=== PATIENT | male | born 1980 | race Caucasian/White ===

== ENCOUNTER 2016-07-25 15:46 | Emergency (ER) | payer MEDICARE ==
[~2016-07-25 15:46] MED LIST: ALPR2TAB5 PO; ASPI-252 PO; METO100T2 PO
[2016-07-25 16:01] VITALS: BP 162/81
--- NOTE | 2016-07-25 16:10 | PHYS DOC ---
Past Medical History Past Medical History: A-Fib, Anxiety, Bronchitis, Other Additional Past Medical Histor: PTSD, TBI, OBESITY Past Surgical History: Other Additional Past Surgical Histo: cervical fusion c-5 to c-7 Alcohol Use: None Drug Use: None Adult General Chief Complaint Chief Complaint: LOWEREXTREMITY INJURY [facility] HPI Patient is a 36 year old male presents to the emergency department with a history of stepping on a nail 2 hours prior to arrival. Patient states that his last tetanus was approx 4 years ago. Patient states he pulled the nail out and believes that it was intact. He has taken ibuprofen 800 mg prior to arrival without relief. Patient states he has placed a bandaid over the area, has increase pain with ambulation. Review of Systems Review of Systems Constitutional: Denies fever or chills [] Eyes: Denies change in visual acuity, redness, or eye pain [] HENT: Denies nasal congestion or sore throat [] Respiratory: Denies cough or shortness of breath [] Cardiovascular: No additional information not addressed in HPI [] GI: Denies abdominal pain, nausea, vomiting, bloody stools or diarrhea [] : Denies dysuria or hematuria [] Musculoskeletal: Denies back pain or joint pain [] Integument: Denies rash or skin lesions. Stepped on nail to the left foot Neurologic: Denies headache, focal weakness or sensory changes [] Current Medications Current Medications Current Medications Medications (Trade) Dose Ordered Sig/Deonte Start Time Stop Time Status Last Admin Dose Admin Acetaminophen/ Hydrocodone Bitart (Lortab 5/325) 2 tab 1X ONCE 07/25/16 16:15 07/25/16 16:16 DC 07/25/16 16:16 2 TAB Diphtheria/ Tetanus/Acell Pertussis (Boostrix) 0.5 ml ONCE ONCE 07/25/16 16:15 07/25/16 16:16 DC 07/25/16 16:16 0.5 ML Allergies Allergies Allergies Coded Allergies Type Severity Reaction Last Updated Verified diphenhydramine Allergy Severe SOA, rapid heart rate 11/13/13 Yes morphine Allergy Intermediate Itching 06/16/14 Yes Physical Exam Physical Exam Constitutional: Well developed, well nourished, no acute distress, non-toxic appearance. [] HENT: Normocephalic, atraumatic, bilateral external ears normal, oropharynx moist, no oral exudates, nose normal. [] Eyes: PERRLA, EOMI, conjunctiva normal, no discharge. [] Neck: Normal range of motion, no tenderness, supple, no stridor. [] Cardiovascular:Heart rate regular rhythm, no murmur [] Lungs & Thorax: Bilateral breath sounds clear to auscultation [] Skin: Warm, dry, no erythema, no rash. Patient has a puncture wound noted the left foot. along the 4th metatarsal area. Back: No tenderness Extremities: No tenderness, no cyanosis, no clubbing, ROM intact, no edema. [] Neurologic: Alert and oriented X 3, normal motor function, normal sensory function, no focal deficits noted. [] Psychologic: Affect normal, judgement normal, mood normal. [] Current Patient Data Vital Signs Vital Signs Date Time Temp Pulse Resp B/P Pulse Ox O2 Delivery O2 Flow Rate FiO2 07/25/16 16:01 98.4 86 13 96 Room Air 98.4 EKG EKG [] Radiology/Procedures Radiology/Procedures [][facility] [address] [place] [address] IMAGING REPORT Signed PATIENT: RUBY BURNS ACCOUNT: [id number] : 1980 LOCATION: ER AGE: 36 SEX: M EXAM STATUS: REG ER ORD. PHYSICIAN: VASILE CLARK NP REASON: stepped on a nail PROCEDURE: FOOT LEFT 3V Left foot, 3 views, 07/25/2016: History: Patient stepped on nail No fracture or dislocation is identified. There is moderate degenerative change at the first MTP joint. No radiopaque foreign body is evident in the soft tissues. IMPRESSION: No acute bony abnormality is detected. DICTATED and SIGNED BY: CHRISTINA SOSA MD DATE: 07/25/16 9864 CC: VASILE CLARK NP; HORACIO CASTANO APRN ~ Course & Med Decision Making Course & Med Decision Making Pertinent Labs and Imaging studies reviewed. (See chart for details) Patients left foot was soaked for 20 minutes in betadine and water. X-ray was negative for foreign body. Patient will be discharged home with recommendation to keep the area clean and dry. Clean the with soap and water 2-3 times a day, placing antibiotic ointment to the area. Watch for signs and symptoms of infection: redness, warmth, tenderness or any yellow/greenish drainage that may come from the site. Patient will be placed on Clindamycin for the next 7 days. Patient was update with a tetanus immunization. Patient was provided with signs and symptoms to become worse. Patient agrees with discharge instructions, treatment regimen and followup recommendations. [] Dragon Disclaimer Dragon Disclaimer This electronic medical record was generated, in whole or in part, using a voice recognition dictation system. Departure Departure Impression: Primary Impression: Puncture wound of left foot Disposition: HOME, SELF-CARE Condition: STABLE Referrals: HORACIO CASTANO APRN (PCP) Patient Instructions: Puncture Wound, [id number] Additional Instructions: X-rays negative for foreign body in the left foot. You have been updated with a tetanus/diphtheria immunization Keep the area clean and dry Clean the site twice a day with soap and water and apply antibiotics Medication as directed Freedom for severe pain and discomfort, this medication will cause drowsiness do not take if you need to be alert and oriented Followup with primary care provider in 3-5 days Return to emergency department as needed for signs and symptoms that become worse. Scripts Hydrocodone/Apap 5-325 (Freedom 5-325 Tablet)1 Each Tablet1-2 Tab PO Q4-6HRS #20 TAB Prov:VASILE CLARK NP 07/25/16 Clindamycin Hcl 150 Mg Capsule3 Cap PO TID 7 Days Prov:VASILE CLARK NP 07/25/16 VASILE CLARK NP Jul 25, 2016 16:10
[2016-07-25] MEDS ORDERED: DIPHTH,PERTUSS(ACELL),TET TOX 0.5 ML DISP.SYRIN. VAX IM ONE (16:15)
[2016-07-25] MEDS ORDERED: HYDROCODONE/APAP 5/325MG TABLET. PO ONE (16:15)
--- NOTE | 2016-07-25 16:25 | RAD ---
Left foot, 3 views, 07/25/2016: History: Patient stepped on nail No fracture or dislocation is identified. There is moderate degenerative change at the first MTP joint. No radiopaque foreign body is evident in the soft tissues. IMPRESSION: No acute bony abnormality is detected.
[2016-07-25] MEDS ORDERED: HYDR-971 PO (16:39)
[2016-07-25] MEDS ORDERED: CLIN-44 PO (16:39)
== END 2016-07-25 16:51 | disposition home or self-care (01) ==
LOC: ER 15:46
DX: S91.332A Puncture wound without foreign body, left foot, initial encounter (principal); E66.9 Obesity, unspecified; I48.91 Unspecified atrial fibrillation; F41.9 Anxiety disorder, unspecified; F43.10 Post-traumatic stress disorder, unspecified; Z87.820 Personal history of traumatic brain injury; Z88.5 Allergy status to narcotic agent; Z88.8 Allergy status to other drugs, medicaments and biological substances; W45.0XXA Nail entering through skin, initial encounter; Y93.89 Activity, other specified; Y92.89 Other specified places as the place of occurrence of the external cause; Y99.8 Other external cause status
CPT/HCPCS: 73630; 90471; 90715; 99284-25

== ENCOUNTER 2017-08-09 09:11 | Emergency (ER) | payer OTHER, MEDICARE | END 2017-08-09 10:40 | disposition home or self-care (01) | LOC: ER 09:11 | DX: H00.025 Hordeolum internum left lower eyelid (principal); R51 Headache; M79.662 Pain in left lower leg; I48.91 Unspecified atrial fibrillation; F43.10 Post-traumatic stress disorder, unspecified; Z88.5 Allergy status to narcotic agent | CPT/HCPCS: 99281 ==

== ENCOUNTER 2017-09-18 02:10 | Emergency (ER) | payer OTHER ==
[2017-09-18] MEDS: ONDANSETRON PF 4 MG/2 ML VIAL. IV (03:03)
[2017-09-18] MEDS: IV NORMAL SALINE 1000ML BAG 1,000 ML IV (03:03)
[2017-09-18] MEDS: KETOROLAC 30 MG/ML INJ. IV (03:04)
[2017-09-18 03:05] LABS: BASO % 0 % (0-3); EOS # 0.1 x10^3/uL (0.0-0.7); EOS % 1 % (0-3); HEMATOCRIT 42.8 % (39.0-53.0); HEMOGLOBIN 14.4 g/dL (13.0-17.5); LYMPH % 8 % (24-48); MEAN CORPUSCULAR HEMOGLOBIN 29 pg (25-35); MEAN CORPUSCULAR HGB CONC 34 g/dL (31-37); MEAN CORPUSCULAR VOLUME 86 fL (79-100); MONO # 0.5 x10^3/uL (0.0-1.1); MONO % 4 % (0-9); NEUT # 10.6 x10^3uL (1.8-7.7); NEUT % 87 % (31-73); PLATELET COUNT 255 x10^3/uL (140-400); RED CELL DISTRIBUTION WIDTH 13.5 % (11.5-14.5); WHITE BLOOD COUNT 12.3 x10^3/uL (4.0-11.0)
[2017-09-18 03:13] LABS: ADD MAN DIFF? YES
[2017-09-18 03:19] LABS: ANION GAP 11 (6-14); BLOOD UREA NITROGEN 10 mg/dL (8-26); BUN/CREATININE RATIO 13 (6-20); CALCIUM 8.8 mg/dL (8.5-10.1); CARBON DIOXIDE 25 mmol/L (21-32); CHLORIDE 103 mmol/L (98-107); CREATININE 0.8 mg/dL (0.7-1.3); GFR 108.2; GLUCOSE 148 mg/dL (70-99); POTASSIUM 4.2 mmol/L (3.5-5.1); SODIUM 139 mmol/L (136-145)
[2017-09-18 03:25] LABS: ALBUMIN 3.5 g/dL (3.4-5.0); ALBUMIN/GLOBULIN RATIO 0.8 (1.0-1.7); ALK PHOS 109 U/L (46-116); ALT (SGPT) 38 U/L (16-63); AST (SGOT) 27 U/L (15-37); LIPASE 112 U/L (73-393); TOTAL BILIRUBIN 0.3 mg/dL (0.2-1.0); TOTAL PROTEIN 7.8 g/dL (6.4-8.2)
[2017-09-18 04:30] LABS: BILIRUBIN,URINE NEGATIVE (NEG); CLARITY,URINE CLEAR; COLOR,URINE YELLOW; GLUCOSE,URINE NEGATIVE (NEG); NITRITE,URINE NEGATIVE (NEG); PH,URINE 5.5; PROTEIN,URINE NEGATIVE (NEG-TRACE); UROBILINOGEN,URINE 0.2 mg/dL (0.2 mg/dL)
[2017-09-18 04:42] LABS: BACTERIA,URINE 0 /HPF (0-FEW); RBC,URINE 0 /HPF (0-2); WBC,URINE OCC /HPF (0-4)
[2017-09-18 04:43] LABS: SQUAMOUS EPITHELIAL CELL,UR OCC /LPF
[2017-09-18 04:47] LABS: % EOS 1 % (0-5); % LYMPHS 13 % (24-48); % MONOS 5 % (0-10); % SEGS 81 % (35-66); PLT ESTIMATE ADEQUATE (ADEQUATE)
== END 2017-09-18 06:11 | disposition home or self-care (01) ==
LOC: ER 02:10
DX: R10.11 Right upper quadrant pain (principal); F43.10 Post-traumatic stress disorder, unspecified; I48.91 Unspecified atrial fibrillation; Z87.442 Personal history of urinary calculi; Z87.820 Personal history of traumatic brain injury; Z88.5 Allergy status to narcotic agent; Z91.041 Radiographic dye allergy status
CPT/HCPCS: 36415; 74176; 80053; 81001; 83690; 85007; 85025; 93005; 96361; 96372; 96374; 96375; 99285-25; J1885; J2060; J2405; J7030

== ENCOUNTER → 2018-12-17 | Outpatient (CLI) | payer MEDICARE, OTHER ==
[2017-09-18 05:24] VITALS: BP 123/72
[~2018-12-17] MED LIST changes: +CLIN150C14 PO; +HYDR-3164 PO; -METO100T2 PO; +METO100T7 PO
--- NOTE | 2018-12-17 17:08 | KCIC ---
CERVICAL SPINE 2-3V History: Cervicalgia, left shoulder pain Comparison: None. Findings: 4 views of the cervical spine are submitted. There is adequate alignment of the lateral masses of C1 relative to C2. Occipital condylar-C1 articulation is preserved. Cervical vertebral body stature and AP alignment are within normal limits. There are posterior lateral mass screws C5, C6, C7 attached to vertical rods, also associated wire. There is moderate narrowing of the C5-6 and C6-7 intervertebral disc spaces. Impression: 1. There is posterior hardware C5-C7. There is narrowing of the C5-6 and C6-7 intervertebral disc spaces. Electronically signed by: Cornel Rausch MD (12/17/2018 5:05 PM) [facility]
--- NOTE | 2018-12-17 17:12 | KCIC ---
SHOULDER 2+V LEFT History: Left shoulder pain for 15 years.. No evidence of acute fracture or dislocation. Joint spaces and soft tissues appear intact. There is minimal cortical irregularity at the lateral left second rib. IMPRESSION: 1. No acute fracture or dislocation of the left shoulder 2. Minimal cortical irregularity of the lateral left second rib as could be seen with a nondisplaced fracture. If there has been recent trauma, correlate for focal tenderness in this region. Electronically signed by: Rodger Hyman MD (12/17/2018 5:09 PM) [facility]
== END | disposition home or self-care (01) ==
LOC: KCIC 11:21
PROVIDERS: ATTEND Family Medicine
DX: M48.02 Spinal stenosis, cervical region (principal); M48.8X2 Other specified spondylopathies, cervical region; M25.512 Pain in left shoulder
CPT/HCPCS: 72040; 73030

== ENCOUNTER 2021-06-12 06:20 | Emergency (ER) | payer MEDICARE, OTHER ==
[~2021-06-12] VITALS: Ht 175.3 cm; Wt 177.9 kg
[~2021-06-12 06:20] MED LIST changes: -CLIN150C14 PO; +CLIN150C16 PO
[2021-06-12 06:22] VITALS: BP 142/68
[2021-06-12] MEDS ORDERED: CLIN-94 PO (06:30)
[2021-06-12] MEDS ORDERED: PRED20TA PO (06:30)
--- NOTE | 2021-06-12 06:30 | PHYS DOC ---
Past Medical History Past Medical History: A-Fib, Anxiety, Bronchitis, Other Additional Past Medical Histor: PTSD, TBI, OBESITY Past Surgical History: Other Additional Past Surgical Histo: cervical fusion c-5 to c-7 Smoking Status: Never Smoker Alcohol Use: None Drug Use: None General Adult EDM: Chief Complaint: DENTAL PROBLEM HPI: HPI: 41-year-old male presents with several day history of upper tooth swelling and discomfort. Patient seen at [facility] yesterday for same and started on amoxicillin, Peridex, and pain medication. Patient reports awaking this morning and noting his upper lip was more swollen than previously. Denies any fever or chills. Denies trauma. Patient with history of poor dentition requiring dental extractions. Patient reports has not been able to have other teeth extracted yet. Review of Systems: Review of Systems: Constitutional: Denies fever or chills Eyes: Denies redness or eye pain HENT: Denies nasal congestion or sore throat; reports dental pain and swelling Integument: Denies rash; reports upper lip and gingival swelling Neurologic: Denies headache, focal weakness or sensory changes Complete systems were reviewed and found to be within normal limits, except as documented in this note. Heart Score: C/O Chest Pain: N/A Allergies: Allergies: Allergies Coded Allergies Type Severity Reaction Last Updated Verified diphenhydramine Allergy Severe SOA, rapid heart rate 11/13/13 Yes morphine Allergy Intermediate Itching 06/16/14 Yes Iodinated Contrast- Oral and IV Dye Allergy Unknown 09/18/17 Yes Physical Exam: PE: Constitutional: Well developed, morbidly obese, no acute distress, non-toxic appearance HENT: Normocephalic, atraumatic, upper lip induration without fluctuance noted, upper gingival swelling without fluctuance, poor dentition throughout, significant dental caries to maxillary central incisors as well as left lateral incisor and canine Eyes: Conjunctiva normal, no discharge Neck: Normal range of motion, no tenderness, supple Lungs & Thorax: No respiratory distress, equal chest rise and fall Skin: Warm, dry, no erythema, no rash Neurologic: Alert and oriented X 3, no focal deficits noted Psychologic: Affect normal, judgment normal EKG: EKG: [] Radiology/Procedures: Radiology/Procedures: [] Course & Med Decision Making: Course & Med Decision Making Patient presents with significant dental caries with gingival swelling and upper lip induration. No drainable abscess appreciated. Patient had previously been started on amoxicillin, Peridex, and prescribed pain medication. Patient denies any fever. Patient is afebrile upon arrival. Decision to upgrade antibiotic selection to clindamycin and add empiric steroid. Initial doses of clindamycin and steroid provided. Patient stable for discharge with outpatient follow-up with PCP/dentist. Discussed findings and plan with patient and spouse, who acknowledge tima ding and agreement. Yovanny Disclaimer: Yovanny Disclaimer: This electronic medical record was generated, in whole or in part, using a voice recognition dictation system. Departure Departure Impression: Primary Impression: Dental infection Additional Impression: Dental caries Disposition: HOME / SELF CARE / HOMELESS Condition: STABLE Referrals: ANTONIO SOLANO MD (PCP) Patient Instructions: Dental Caries, Gingivitis, [id number], Toothache-Brief Additional Instructions: May also use [id number] ibuprofen or naproxen as needed for pain or discomfort. Please continue previously prescribed dental rinse as well as pain medications. Call and make an appointment to be seen by a dentist with need for dental extraction. Scripts Prednisone (PREDNISONE) 20 Mg Tablet 2 TAB PO DAILY for 4 Days, #8 TAB Start this prescription tomorrow, 06/13/21 Prov: JOHN GALE DO 06/12/21 Clindamycin Hcl (CLINDAMYCIN HCL) 300 Mg Capsule 1 CAP PO TID for 7 Days, #21 CAP Prov: JOHN GALE DO 06/12/21 JOHN GALE DO Jun 12, 2021 06:30
[2021-06-12] MEDS ORDERED: DEXAMETHASONE 4 MG TABLET PO ONE (07:00)
[2021-06-12] MEDS ORDERED: CLINDAMYCIN HCL 150 MG CAPSULE. PO ONE (07:00)
== END 2021-06-12 06:38 | disposition home or self-care (01) ==
LOC: ER 06:20
DX: K04.7 Periapical abscess without sinus (principal); K02.9 Dental caries, unspecified; I48.91 Unspecified atrial fibrillation; F43.10 Post-traumatic stress disorder, unspecified; Z87.820 Personal history of traumatic brain injury; Z88.5 Allergy status to narcotic agent; Z91.041 Radiographic dye allergy status
CPT/HCPCS: 99283